=== PATIENT | female | born 1990 | race Caucasian/White ===

== ENCOUNTER 2017-04-14 13:31 | Observation (INO) | payer SELFPAY ==
[~2017-04-14] VITALS: Ht 157.5 cm; Wt 52.2 kg
[~2017-04-14 13:31] MED LIST: DOXY25TA42 PO; METO10TA81 PO; ONDA4TAB10 SL; ONDA4TAB7 PO; PROM25SU2 RC; vitamin B6
[2017-04-14] MEDS ORDERED: IV NORMAL SALINE 1000ML BAG 1,000 ML IV ONE (14:00)
[2017-04-14] MEDS ORDERED: ONDANSETRON PF 4 MG/2 ML VIAL. IV ONE (14:00)
[2017-04-14 14:08] LABS: BASO % 0 % (0-3); EOS % 0 % (0-3); HEMATOCRIT 37.1 % (36.0-47.0); HEMOGLOBIN 12.5 g/dL (12.0-15.5); LYMPH # 1.4 x10^3/uL (1.0-4.8); LYMPH % 15 % (24-48); MEAN CORPUSCULAR HEMOGLOBIN 27 pg (25-35); MEAN CORPUSCULAR HGB CONC 34 g/dL (31-37); MEAN CORPUSCULAR VOLUME 80 fL (79-100); MONO % 6 % (0-9); NEUT % 79 % (31-73); PLATELET COUNT 310 x10^3/uL (140-400); RED BLOOD COUNT 4.62 x10^6/uL (3.50-5.40); RED CELL DISTRIBUTION WIDTH 15.8 % (11.5-14.5); WHITE BLOOD COUNT 9.8 x10^3/uL (4.0-11.0)
[2017-04-14 14:08] LABS: BILIRUBIN,URINE NEGATIVE (NEG); GLUCOSE,URINE NEGATIVE (NEG); NITRITE,URINE NEGATIVE (NEG); PH,URINE 6.5; PROTEIN,URINE 30 mg/dL (NEG-TRACE)
[2017-04-14 14:24] LABS: CALCIUM 9.2 mg/dL (8.5-10.1); CREATININE 0.7 mg/dL (0.6-1.0); POTASSIUM 3.3 mmol/L (3.5-5.1)
[2017-04-14 14:29] LABS: BACTERIA,URINE MODERATE /HPF (0-FEW); RBC,URINE 0 /HPF (0-2); SQUAMOUS EPITHELIAL CELL,UR MANY /LPF
[2017-04-14 14:30] LABS: ALBUMIN 4.4 g/dL (3.4-5.0); ALBUMIN/GLOBULIN RATIO 1.3 (1.0-1.7); TOTAL BILIRUBIN 0.5 mg/dL (0.2-1.0); TOTAL PROTEIN 7.9 g/dL (6.4-8.2)
--- NOTE | 2017-04-14 14:44 | PHYS DOC ---
Past Medical History Past Medical History: Other Additional Past Medical Histor: HYPEREMESIS GRAVIDARUM Past Surgical History: Alcohol Use: None Drug Use: None Adult General Chief Complaint Chief Complaint: VOMITING IN HPI HPI 27-year-old female presenting to the emergency department today with nausea vomiting in a positive test. The patient is status post having 2 twins delivered approximately 6 months ago. Her previous oval or circular glass cutter was Dr. Bueno. She previously had a diagnosis of hyperemesis gravidarum and at one point in the had to be admitted to the hospital for IV fluids. Her last menstrual period she describes as having a 1-2 day menstruation in the middle of November but is not entirely sure of when it was in November. She describes her lower abdominal pain is sharp intermittent nonradiating and without alleviating factors. It is associated with nausea and vomiting. She denies any bilious or bloody fluid in her emesis. Review of systems is negative for chest pain shortness of breath. She denies fevers chills or headache. All other review of systems is negative unless otherwise noted in history of present illness. Pertinent physical exam findings showed a soft nontender abdomen. Uterus is below the umbilicus. Otherwise unremarkable exam. ED course: 27-year-old female presenting to the emergency department with abdominal pain nausea and vomiting in . Blood work ordered. Initial triage vital signs afebrile. Normal heart rate. The patient was given IV fluids in the ER. Ultrasound ordered to confirm intrauterine . The patient was then transferred to Dr. Parrish at 3 PM with plans to follow-up on ultrasound and reexamine of the patient's condition. Patient was stable at sign out. Review of Systems Review of Systems SEE ABOVE. Current Medications Current Medications Current Medications Medications (Trade) Dose Ordered Sig/Shon Start Time Stop Time Status Last Admin Dose Admin Ondansetron HCl (Zofran) 4 mg 1X ONCE 04/14/17 14:00 04/14/17 14:04 DC 04/14/17 14:08 4 MG Sodium Chloride 1,000 ml @ 1,000 mls/hr 1X ONCE 04/14/17 14:00 04/14/17 14:59 04/14/17 14:08 1,000 MLS/HR Allergies Allergies Allergies Coded Allergies Type Severity Reaction Last Updated Verified No Known Drug Allergies 04/06/16 No Physical Exam Physical Exam Constitutional: Well developed, well nourished, no acute distress, non-toxic appearance. [] HENT: Normocephalic, atraumatic, bilateral external ears normal, oropharynx dry , no oral exudates, nose normal. Eyes: PERRLA, EOMI, conjunctiva normal, no discharge. [] Neck: Normal range of motion, no tenderness, supple, no stridor. [] Cardiovascular:Heart rate regular rhythm, no murmur [] Lungs & Thorax: Bilateral breath sounds clear to auscultation Abdomen: see above Skin: Warm, dry, no erythema, no rash. [] Back: No tenderness, no CVA tenderness. [] Extremities: No tenderness, no cyanosis, no clubbing, ROM intact, no edema. [] Neurologic: Alert and oriented X 3, normal motor function, normal sensory function, no focal deficits noted. [] Psychologic: Affect normal, judgement normal, mood normal. [] Current Patient Data Vital Signs Vital Signs Date Time Temp Pulse Resp B/P (MAP) Pulse Ox O2 Delivery O2 Flow Rate FiO2 04/14/17 13:37 97.9 70 18 136/71 (92) 98 Room Air 97.9 Lab Values Laboratory Tests Test 04/14/17 13:40 04/14/17 13:50 Urine Collection Type Unknown Urine Color Blessing Urine Clarity Cloudy Urine pH 6.5 Urine Specific [place] >=1.030 Urine Protein 30 mg/dL (NEG-TRACE) Urine Glucose (UA) Negative mg/dL (NEG) Urine Ketones (Stick) >=80 mg/dL (NEG) Urine Blood Negative (NEG) Urine Nitrite Negative (NEG) Urine Bilirubin Negative (NEG) Urine Urobilinogen Dipstick 1.0 mg/dL (0.2 mg/dL) Urine Leukocyte Esterase Trace (NEG) Urine RBC 0 /HPF (0-2) Urine WBC 5-10 /HPF (0-4) Urine Squamous Epithelial Cells Many /LPF Urine Bacteria Moderate /HPF (0-FEW) Urine Mucus Marked /LPF White Blood Count 9.8 x10^3/uL (4.0-11.0) Red Blood Count 4.62 x10^6/uL (3.50-5.40) Hemoglobin 12.5 g/dL (12.0-15.5) Hematocrit 37.1 % (36.0-47.0) Mean Corpuscular Volume 80 fL (79-100) Mean Corpuscular Hemoglobin 27 pg (25-35) Mean Corpuscular Hemoglobin Concent 34 g/dL (31-37) Red Cell Distribution Width 15.8 % (11.5-14.5) H Platelet Count 310 x10^3/uL (140-400) Neutrophils (%) (Auto) 79 % (31-73) H Lymphocytes (%) (Auto) 15 % (24-48) L Monocytes (%) (Auto) 6 % (0-9) Eosinophils (%) (Auto) 0 % (0-3) Basophils (%) (Auto) 0 % (0-3) Neutrophils # (Auto) 7.7 x10^3uL (1.8-7.7) Lymphocytes # (Auto) 1.4 x10^3/uL (1.0-4.8) Monocytes # (Auto) 0.6 x10^3/uL (0.0-1.1) Eosinophils # (Auto) 0.0 x10^3/uL (0.0-0.7) Basophils # (Auto) 0.0 x10^3/uL (0.0-0.2) Sodium Level 137 mmol/L (136-145) Potassium Level 3.3 mmol/L (3.5-5.1) L Chloride Level 100 mmol/L (98-107) Carbon Dioxide Level 24 mmol/L (21-32) Anion Gap 13 (6-14) Blood Urea Nitrogen 11 mg/dL (7-20) Creatinine 0.7 mg/dL (0.6-1.0) Estimated GFR (Cockcroft-Gault) 102.0 BUN/Creatinine Ratio 16 (6-20) Glucose Level 106 mg/dL (70-99) H Calcium Level 9.2 mg/dL (8.5-10.1) Total Bilirubin 0.5 mg/dL (0.2-1.0) Aspartate Amino Transferase (AST) 19 U/L (15-37) Alanine Aminotransferase (ALT) 24 U/L (14-59) Alkaline Phosphatase 65 U/L (46-116) Total Protein 7.9 g/dL (6.4-8.2) Albumin 4.4 g/dL (3.4-5.0) Albumin/Globulin Ratio 1.3 (1.0-1.7) Lipase 110 U/L (73-393) Laboratory Tests 04/14/17 13:50 Laboratory Tests 04/14/17 13:50 EKG EKG [] Radiology/Procedures Radiology/Procedures [] Course & Med Decision Making Course & Med Decision Making Pertinent Labs and Imaging studies reviewed. (See chart for details) [] Dragon Disclaimer Dragon Disclaimer This electronic medical record was generated, in whole or in part, using a voice recognition dictation system. Departure Departure Impression: Primary Impression: Nausea and vomiting during Referrals: MARTIR SCHERER Jr, MD (PCP) OMAR MCCANN MD Apr 14, 2017 14:44
[2017-04-14] MEDS ORDERED: IV DEXTROSE 5 %-0.45 % NACL 500 ML IV ONE (14:45)
--- NOTE | 2017-04-14 15:33 | RAD ---
Obstetrical ultrasound, 04/14/2017: History: Hyperemesis, pain Transabdominal and transvaginal scans were obtained. The uterus contains a single gestational sac within the right fundal region. The gestational sac contains a yolk sac. There is a probable tiny pole measuring 2 millimeters with questionable heart motion. The mean gestational sac diameter of 1.4 would suggest a gestational age of approximately 6 weeks. There is a small amount of heterogeneous material within the central uterine cavity along the left side of the gestational sac compatible with a small subchorionic hemorrhage. The left ovary is unremarkable. The right ovary contains tiny follicular cysts as well as a solid appearing nodule measuring 2.8 cm in greatest diameter. There appears to be color flow within a portion of this nodule. Along the inferior margin of the right ovary there is an additional small 2.1 cm nodule which cannot be from the ovary. It is hypoechoic internally and demonstrates a rim of medium thickness. There is vascularity within its rim. This probably represents a corpus luteum cyst, although an ectopic cannot be excluded. There is a small amount of adjacent free fluid in this region. The adnexal structures are otherwise unremarkable. IMPRESSION: 1. Intrauterine of approximately 6 weeks gestational age. 2. Small subchorionic hemorrhage. 3. Small solid-appearing right ovarian nodule. follow-up is suggested. 4. Small thick walled hypoechoic structure along the inferior margin of the right ovary which is probably a corpus luteum cyst. An ectopic is less likely, particularly in view of the presence of an intrauterine . 5. Small amount free fluid in the pelvis.
[2017-04-14 17:22] VITALS: BP 117/66
[2017-04-14] MEDS ORDERED: ONDANSETRON PF 4 MG/2 ML VIAL. IV PRN (17:45)
[2017-04-14] MEDS ORDERED: ACETAMINOPHEN 500 MG TABLET PO PRN (17:45)
[2017-04-14] MEDS ORDERED: METOCLOPRAMIDE HCL 10 MG/2 ML VIAL. IV PRN (17:45)
[2017-04-14] MEDS ORDERED: PANTOPRAZOLE SODIUM IV 80 MG in IV NORMAL SALINE 100ML 100 ML IV SCH (17:45)
[2017-04-14] MEDS: PANTOPRAZOLE IV PUSH 40 MG VIAL. IVP SCH (18:28)
[2017-04-14] MEDS: ONDANSETRON PF 4 MG/2 ML VIAL. IV PRN (18:28)
[2017-04-14] MEDS: IV RINGERS,LACTATED 1000ML 1,000 ML IV SCH ×2 (18:29→23:02)
[2017-04-14 20:15] VITALS: BP 97/55
[2017-04-15] MEDS: ONDANSETRON PF 4 MG/2 ML VIAL. IV PRN ×2 (03:03→11:18)
[2017-04-15 03:05] VITALS: BP 101/58
[2017-04-15 03:06] LABS: BASO # 0.1 x10^3/uL (0.0-0.2); BASO % 1 % (0-3); EOS % 1 % (0-3); HEMATOCRIT 31.1 % (36.0-47.0); HEMOGLOBIN 10.5 g/dL (12.0-15.5); LYMPH # 1.9 x10^3/uL (1.0-4.8); LYMPH % 29 % (24-48); MEAN CORPUSCULAR HEMOGLOBIN 27 pg (25-35); MEAN CORPUSCULAR HGB CONC 34 g/dL (31-37); MEAN CORPUSCULAR VOLUME 81 fL (79-100); MONO % 9 % (0-9); NEUT % 60 % (31-73); PLATELET COUNT 234 x10^3/uL (140-400); RED BLOOD COUNT 3.85 x10^6/uL (3.50-5.40); RED CELL DISTRIBUTION WIDTH 15.6 % (11.5-14.5); WHITE BLOOD COUNT 6.7 x10^3/uL (4.0-11.0)
[2017-04-15] MEDS: PANTOPRAZOLE IV PUSH 40 MG VIAL. IVP SCH (09:53)
[2017-04-15] MEDS: IV RINGERS,LACTATED 1000ML 1,000 ML IV SCH (10:28)
[2017-04-15 10:30] VITALS: BP 106/60
--- NOTE | 2017-04-15 13:25 | PDOC1 ---
OB - History Hx of Present Care: None Ultrasounds: No ultrasounds Obstetrical Complications: Hyperemesis Medical Complications: None Other Concerns: previous with twins delivered via c/s Past Family/Social History * Past Medical, Surgical, Family and Obstetric Histories reviewed from chart. Blood Type: Unknown RPR/VDRL: Unknown GBS Status: Unknown HBsAG: Unknown OB - Chief Complaint & HPI Date of Admission: Date of Admission: Apr 14, 2017 at 16:14 Chief Complaint/History : 2 Para: 2 EGA: 6 Reason for admission: other (abd pain and hyperemesis) Admission Nurse Assessment Rev: Yes Problems: OB - Admission Exam Physical Exam Vitals: VS - Last 72 Hours, by Label Date Time Temp Pulse Resp B/P (MAP) Pulse Ox O2 Delivery O2 Flow Rate FiO2 04/15/17 10:30 98.1 66 18 106/60 (75) 98.1 04/15/17 03:05 98.2 68 18 101/58 (72) 98.2 04/14/17 20:15 98.2 64 18 97/55 (69) 98 Room Air 98.2 04/14/17 17:22 97.9 77 18 117/66 (83) 98 Room Air 97.9 04/14/17 17:00 70 16 117/76 (90) 100 Room Air 04/14/17 16:00 76 16 108/72 (84) 100 Room Air 04/14/17 15:00 78 16 110/70 (83) 100 Room Air 04/14/17 13:37 97.9 70 18 136/71 (92) 98 Room Air 97.9 HEENT: Normal Heart: Regular Rate, No Murmurs Lungs: Clear Abdomen: Gravid, Non tender, Soft Extremities: No tenderness or swelling Reflexes: Normal Cervical Dilatation: None Effacement: 0% Membranes: Intact Heart Rate: Normal Text A: 6 wks IUP Hyperemesis P: Observation for rehydration with IV fluids and antiemetics. D/c home when tolerating regular diet. MARTIR SCHERER Jr, MD Apr 15, 2017 13:25
--- NOTE | 2017-04-15 13:26 | DISCH ---
DISCHARGE INSTRUCTIONS Condition on Discharge Condition on Discharge: Stable Activity After Discharge Activity Instructions for Disc: Activity as tolerated Lifting Instructions after Dis: No heavy lifting Driving Instructions after Dis: Do not drive today Diet after Discharge Diet after Discharge: Regular Contacting the DREffie after DC Call your doctor for: Concerns you may have Follow-Up Follow up with: Dr. Luna on Monday. MARTIR LUNA Jr, MD Apr 15, 2017 13:26
[2017-04-15] MEDS ORDERED: ONDA8TAB12 PO (13:27)
[2017-04-15 14:00] VITALS: BP 104/62
== END 2017-04-15 14:35 | disposition home or self-care (01) ==
LOC: ER 13:31 → 3 NORTH 16:14
PROVIDERS: ADMIT Obstetrics & Gynecology; ATTEND Obstetrics & Gynecology
DX: O21.0 Mild hyperemesis gravidarum (principal); Z3A.01 Less than 8 weeks gestation of pregnancy
CPT/HCPCS: 36415; 76801; 76817; 80053; 81001; 81025; 83690; 84144; 84702; 85027; 86900; 86901; 87086; 96361; 96374; 96375; 96376; 99285; C9113; G0378; J2405; J2765; J7030; G0379; J7120

== ENCOUNTER → 2017-05-08 | Outpatient (CLI) | payer OTHER ==
[2017-04-15 14:00] VITALS: BP 104/62
[~2017-05-08] MED LIST changes: +ONDA8TAB12 PO
--- NOTE | 2017-05-08 17:53 | RAD ---
Early OB ultrasound History: No heart tones. Pain. Comparison: None. Technique: Transabdominal imaging was performed. Findings: Single intrauterine is identified with gestational sac and embryo seen. Mean crown-rump length is 2.42 cm corresponding to 9 weeks 1 day. Embryonic heart motion is not detected. Findings are diagnostic of intrauterine embryonic demise. Right ovary measures 3.0 x 2.1 x 1.6 cm and demonstrates several small follicles. Left ovary measures 2.8 x 1.9 x 1.9 cm and demonstrates a few follicles. Impression: 1. Intrauterine embryonic demise. Electronically signed by: Brett Perdue MD (05/08/2017 5:50 PM) [facility]
== END | disposition home or self-care (01) ==
LOC: US 17:06
PROVIDERS: ATTEND Obstetrics & Gynecology
DX: O09.91 Supervision of high risk pregnancy, unspecified, first trimester (principal); O20.0 Threatened abortion; Z3A.09 9 weeks gestation of pregnancy
CPT/HCPCS: 76801

== ENCOUNTER 2017-05-11 10:45 | Day surgery (SDC) | payer OTHER ==
[~2017-05-11] VITALS: Ht 157.5 cm; Wt 49.9 kg
[~2017-05-11 10:45] MED LIST changes: +DEXAMETHASONE SOD PHOS 20 MG/5 ML VIAL. ONE; +FAMOTIDINE 20 MG/2 ML VIAL ONE; +HYDROmorphone 2 MG/ML VIAL IV PRN; +IV RINGERS,LACTATED 1000ML 1,000 ML IV SCH; +LIDOCAINE 1% 1 ML SYRINGE. ID PRN; +LIDOCAINE 2% PF Vial for OR 5 ML VIAL. ONE; +MIDAZOLAM HCL/PF 2 MG/2 ML VIAL. ONE; +MORPHINE SULFATE 2 MG/ML DISP.SYRIN. IV PRN; +ONDANSETRON PF 4 MG/2 ML VIAL. IV PRN; +ONDANSETRON PF 4 MG/2 ML VIAL. ONE; +PROPOFOL 20 ML IV ONE; +fentaNYL PF VIAL 100 MCG/2 ML VIAL IV PRN; +fentaNYL PF VIAL 100 MCG/2 ML VIAL ONE
[2017-05-11] MEDS ORDERED: OXYTOCIN 10 UNIT/ML VIAL. ONE ×2 (11:04→11:39)
[2017-05-11] MEDS ORDERED: VASOPRESSIN 20 UNIT/ML VIAL. ONE (11:04)
[2017-05-11] MEDS ORDERED: SEVOFLURANE 16 TO 30 MINUTES. IH ONE (11:42)
--- NOTE | 2017-05-11 11:50 | PDOC ---
BRIEF OPERATIVE NOTE Pre-Op Diagnosis 8wk Missed Post-Op Diagnosis SAme Procedure Performed Suction D&C Surgeon Dr. Thompson Anesthesia Type: General Blood Loss 200 ml Specimens Obtained POC Findings POC Complications none OPerative Note Pt. with 8 wk missed . SHe was consented and taken to OR suite. After adequate anesthesia, the patient was prepped with betadine solution and draped in normal fashion. She was placed in dorsolithotomy position. Weighted speculum and curved lena was placed vaginally. Single toothe tenaculum was placed on anterior lip of cervix. Cervix was dilated with Miranda dilators up to size 9. A curved tip 9mm suction curette was placed and rotated circumferentially with pressure of 65 mmHg removing POC and blood clots. This was followed by sharp curettage until fine gritty surface palpated circumferentially. Suction curette was performed once again. All instruments removed and uterus palpated firm. Pt. taken to PACU in stable condition. Sponge count correct x 3. MARTIR THOMPSON Jr, MD May 11, 2017 11:50
--- NOTE | 2017-05-11 11:51 | DISCH ---
DISCHARGE INSTRUCTIONS Condition on Discharge Condition on Discharge: Stable Activity After Discharge Activity Instructions for Disc: Activity as tolerated Lifting Instructions after Dis: No heavy lifting Driving Instructions after Dis: Do not drive today Diet after Discharge Diet after Discharge: Regular Contacting the DREffie after DC Call your doctor for: Concerns you may have Follow-Up Follow up with: Dr. Thompson in 1 week. MARTIR THOMPSON Jr, MD May 11, 2017 11:51
[2017-05-11] MEDS ORDERED: OXYC-323 PO (12:16)
[2017-05-11] MEDS ORDERED: DOXYCYCLINE HYCLATE 100 MG TABLET PO ONE (13:00)
[2017-05-11] MEDS ORDERED: oxyCODONE/APAP 5/325 1 TAB TABLET PO ONE (13:15)
[2017-05-11 13:26] VITALS: BP 99/58
--- NOTE | 2017-05-15 14:31 | PATHOLOGY ---
PATHOLOGY REPORT * * * * * * * * FINAL DIAGNOSIS: Intrauterine contents, removal: - Chorionic villi present. (SKM/db; 05/15/2017) REPORT ELECTRONICALLY SIGNED BY: Madeline Toscano M.D. DATE/TIME: 05/15/2017 14:30 * * * * * * * * GROSS PATHOLOGY: Received in formalin labeled "Yvonne Minor, products of conception," is a 19.6 x 7.5 x 2.0 cm aggregate of abundant blood clot admixed with spongiform, pink-murrell tissue. tissue is is not grossly identified. Vesicular structures are absent. [employer] tissue is submitted in cassette A1 through A3. (CAA; 05/13/2017) INITIAL CPT CODE(S): A; 40879 Professional services performed [place] [facility] [place] [address] Technical services performed by [facility] at [address] [place] [address] [address] [address]. SPECIMEN(S) RECEIVED: A.Products of conception CLINICAL HISTORY: Missed , 8 weeks PATIENT: YVONNE MINOR /AGE: 402/07/1990 (Age: 27) PATIENT #: [id number] ALT CASE #: SPECIMEN COLLECTION DATE: 05/11/2017 SPECIMEN RECEIVED DATE: 05/11/2017 [facility] - [address] [place] [address] - PHONE: [phone] * * * END OF REPORT * * *
== END 2017-05-11 14:02 | disposition home or self-care (01) ==
LOC: SURG 10:45
PROVIDERS: ATTEND Obstetrics & Gynecology
DX: O02.1 Missed abortion (principal); Z86.69 Personal history of other diseases of the nervous system and sense organs; Z85.41 Personal history of malignant neoplasm of cervix uteri; Z72.0 Tobacco use; Z91.018 Allergy to other foods
CPT/HCPCS: 59820; J1100; J2001; J2250; J2405; J2590; J2704; J3010; S0028; J3490